=== PATIENT | male | born 1990 | race Caucasian/White ===

== ENCOUNTER 2017-09-02 23:04 | Emergency (ER) | payer BC, SELFPAY ==
[2017-09-02] MEDS ORDERED: Lidocaine 1% w/Epinephrine 1:200K 30 ML VIAL ONE (23:44)
[2017-09-02] MEDS ORDERED: Adacel (T-DAP) 0.5 ML VIAL ONE (23:50)
[2017-09-03] MEDS ORDERED: Bacitracin Zinc 1 Packet ONE (00:15)
== END 2017-09-03 00:22 | disposition home or self-care (01) ==
LOC: ERS 23:04
DX: S01.21XA Laceration without foreign body of nose, initial encounter (principal); J45.909 Unspecified asthma, uncomplicated; F17.210 Nicotine dependence, cigarettes, uncomplicated; W22.8XXA Striking against or struck by other objects, initial encounter; Y99.0 Civilian activity done for income or pay
CPT/HCPCS: 12013; 90471; 90715

== ENCOUNTER 2020-03-04 10:08 | Outpatient (CLI) | payer BC ==
--- NOTE | 2020-03-04 12:14 | MRI ---
MRI LUMBAR SPINE WITHOUT CONTRAST: Date: 03/04/2020 INDICATION: 30-year-old male with low back pain radiating down the left leg. COMPARISON: None. FINDINGS: Visualized retroperitoneum and paravertebral soft tissues are within normal limits. Bone marrow signa l intensity is within normal limits. The conus is seen to terminate at approximately L1. At L5-S1, there is mild facet joint degenerative change, but no appreciable central canal or neural f oraminal narrowing. At L4-5, there is a broad based bulge with a superimposed left paracentral protrusion and annular fis sure. The annular fissure measures approximately 6.0 mm in its greatest transverse dimension. The bro ad based bulge and superimposed protrusion induce moderate left-sided lateral recess narrowing with p otential for contact of the traversing left L5 nerve root on image 47 of series 6. This was also seen on image 12 of series 3. The broad based bulge and facet hypertrophy induce mild left neural foramin al narrowing. At L3-4, there is no appreciable central canal or neural foraminal narrowing. At L2-3, there is no appreciable central canal or neural foraminal narrowing. At L1-L2, there is no appreciable central canal or neural foraminal narrowing. At T12-L1, there is no appreciable central canal or neural foraminal narrowing. IMPRESSION: 1. Broad based disc bulge with a superimposed left paracentral protrusion and annular fissure at L4- L5 inducing moderate left lateral recess narrowing with potential for contact of the traversing left L5 nerve root. 2. Mild left neural foraminal narrowing at L4-5. POS: [facility]
== END 2020-03-04 10:09 | disposition home or self-care (01) ==
LOC: TBSIIMAG 10:08
PROVIDERS: ATTEND Specialist
DX: M51.16 Intervertebral disc disorders with radiculopathy, lumbar region (principal); M48.061 Spinal stenosis, lumbar region without neurogenic claudication
CPT/HCPCS: 72148